=== PATIENT | female | born 1980 | race Caucasian/White ===

== ENCOUNTER 2019-01-22 13:58 | Emergency (ER) | payer BC ==
[~2019-01-22] VITALS: Ht 157.5 cm; Wt 91.2 kg
[2019-01-22 14:00] VITALS: BP 107/60
--- NOTE | 2019-01-22 14:01 | NUR ---
PATIENT BIBA TO BED 12 AT THIS TIME.
--- NOTE | 2019-01-22 14:10 | NUR ---
PT C/O BILAT LOWER QUADRANT ABDOMINAL PAIN 10/10 ACHING, NONRADIATING AND WEAKNESS SINCE LAST NIGHT. DENIES N/V. ADMITS TO DI[facility]HEA. ABD ROUND, SOFT, NONTENDER BOWEL SOUNDS NORMOACTIVE X 4 QUADRANTS. PT HAD PITUITARY TUMOR REMOVAL 1 WEEK AGO. DENIES CP/SOB/FEVERS.
--- NOTE | 2019-01-22 14:33 | NUR ---
PT IS AA0X4. VSS AT THIS TIME. BED IS DOWN, LOCKED, BED RAIL X 1. PMH- DM ALLERGIES- GLIPIZIDE
[2019-01-22 14:49] LABS: BASOPHILS % (AUTO) 0.4 % (0.0-2.0); EOSINOPHILS # (AUTO) 0.1 K/uL (0-0.4); EOSINOPHILS % (AUTO) 0.8 % (0.0-4.0); HEMATOCRIT 38.1 % (36-48); HEMOGLOBIN 12.6 g/dL (12.0-16.0); LYMPHOCYTES # (AUTO) 2.3 K/uL (2.5-16.5); LYMPHOCYTES % (AUTO) 19.9 % (20.5-51.1); MEAN CORPUSCULAR HEMOGLOBIN 29 pg (27-31); MEAN CORPUSCULAR HGB CONC 33 g/dL (33-37); MEAN CORPUSCULAR VOLUME 87.1 fL (80-94); MONOCYTES # (AUTO) 0.8 K/uL (0.8-1.0); MONOCYTES % (AUTO) 6.9 % (1.7-9.3); NEUTROPHILS # (AUTO) 8.3 K/uL (1.8-7.7); PLATELET COUNT (AUTO) 376 K/uL (140-450); RED BLOOD CELL COUNT(AUTO) 4.37 MIL/uL (4.20-5.40); RED CELL DISTRIBUTION WIDTH 14.6 % (11.6-13.7); WHITE BLOOD COUNT (AUTO) 11.5 K/uL (4.8-10.8)
--- NOTE | 2019-01-22 15:10 | NUR ---
pt unable to give poop sample at this time
[2019-01-22 15:16] LABS: CARBON DIOXIDE 25.1 mmol/L (21-32); POTASSIUM 4.1 mmol/L (3.5-5.1)
[2019-01-22 15:17] LABS: ALBUMIN 3.2 g/dL (3.4-5.0); CREATININE 0.9 mg/dL (0.6-1.3); TOTAL BILIRUBIN 0.2 mg/dL (0.0-1.0)
[2019-01-22 15:28] LABS: APPEARANCE,URINE CLEAR (CLEAR); BLOOD, URINE NEGATIVE (NEGATIVE); COLOR,URINE YELLOW (YELLOW); PH,URINE 8.5 (5.0-9.0); UGLUCOSE NEGATIVE (NEGATIVE)
[2019-01-22 15:29] LABS: BILIRUBIN,URINE NEGATIVE (NEGATIVE); LEUKOCYTE ESTERASE ,URINE NEGATIVE (NEGATIVE); NITRITE, URINE NEGATIVE (NEGATIVE)
--- NOTE | 2019-01-22 16:30 | NUR ---
VSS AT THIS TIME. AA0X4.
[2019-01-22] MEDS ORDERED: DICYCLOMINE HCL LIQUID 10 MG/5 ML UDC PO ONE (16:40)
[2019-01-22] MEDS ORDERED: NACL 0.9% 1,000 ML IV ONE ×3 (17:00→19:00)
--- NOTE | 2019-01-22 18:00 | NUR ---
VSS AT THIS TIME. AA0X4.
--- NOTE | 2019-01-22 19:03 | NUR ---
PT BS 150, PT WOULD LIKE TO EAT
--- NOTE | 2019-01-22 19:10 | NUR ---
report given to ian crump
--- NOTE | 2019-01-22 19:35 | NUR ---
PATIENT RESTING COMFORTABLY, SAFETY PRECAUTIONS IN PLACE.WAITING TO BE EVALUATED BY ER MD.
--- NOTE | 2019-01-22 19:38 | NUR ---
ER MD AT BEDSIDE, SAFETY PRECAUTIONS IN PLACE.
[2019-01-22 19:54] VITALS: BP 110/55
--- NOTE | 2019-01-22 19:54 | NUR ---
Patient discharged with v/s stable. Written and verbal after care instructions given and explained. Patient verbalized understanding. Ambulatory with steady gait. All questions addressed prior to discharge. Advised to follow up with PMD.
--- NOTE | 2019-01-25 14:10 | NUR ---
Late entry. Confirmed with RN that 1000 ml 0.9NS IV bolus' were given times 2 ending both at 1920
== END 2019-01-22 19:54 | disposition home or self-care (01) ==
LOC: MED 13:58
DX: R55 Syncope and collapse (principal); R10.30 Lower abdominal pain, unspecified; R51 Headache; E11.9 Type 2 diabetes mellitus without complications; Z88.8 Allergy status to other drugs, medicaments and biological substances; Z98.890 Other specified postprocedural states
CPT/HCPCS: 36415; 74176; 80053; 81003; 81025; 83690; 85025; 96360; 99284; J7030